=== PATIENT | male | born 1955 | race Caucasian/White ===

== ENCOUNTER → 2018-02-26 | Emergency (ER) | payer OTHER ==
[~2018-02-26] VITALS: Ht 185.4 cm; Wt 83.0 kg
--- NOTE | 2018-02-26 13:14 | PHYS DOC ---
Adult General Chief Complaint Chief Complaint: WEAKNESS/GENERALIZED HPI HPI 62-year-old male presents with concern for stroke. The patient woke up at 6:30 feeling normal. Around 7 AM the patient felt like he was drooling out of the left side of his mouth and had a possible facial droop. At 8 AM, his noticed that his speech might be somewhat slurred. Between the time the patient woke up at the time he and his came to the emergency room they went on a bike ride of several miles. The patient continues to have some slight slurring of his speech and a left sided lower lid droop, so they came to the ED. The patient feels normal. He is able to walk without difficulty. All his extremities are moving. He continues to have a slight droop in the left lower lip and his speech is slightly slurred. He has no other focal deficits. Review of Systems Review of Systems Constitutional: Denies fever or chills [] Eyes: Denies change in visual acuity, redness, or eye pain [] HENT: Denies nasal congestion or sore throat [] Respiratory: Denies cough or shortness of breath [] Cardiovascular: No additional information not addressed in HPI [] GI: Denies abdominal pain, nausea, vomiting, bloody stools or diarrhea [] : Denies dysuria or hematuria [] Musculoskeletal: Denies back pain or joint pain [] Integument: Denies rash or skin lesions [] Neurologic: Left-sided facial droop, slurred speech[] Endocrine: Denies polyuria or polydipsia [] All other systems were reviewed and found to be within normal limits, except as documented in this note. Physical Exam Physical Exam Constitutional: Well developed, well nourished, no acute distress, non-toxic appearance. [] HENT: Normocephalic, atraumatic, bilateral external ears normal, oropharynx moist, no oral exudates, nose normal. [] Eyes: PERRLA, EOMI, conjunctiva normal, no discharge. [] Neck: Normal range of motion, no tenderness, supple, no stridor. [] Cardiovascular:Heart rate regular rhythm, no murmur [] Lungs & Thorax: Bilateral breath sounds clear to auscultation [] Abdomen: Bowel sounds normal, soft, no tenderness, no masses, no pulsatile masses. [] Skin: Warm, dry, no erythema, no rash. [] Back: No tenderness, no CVA tenderness. [] Extremities: No tenderness, no cyanosis, no clubbing, ROM intact, no edema. [] Neurologic: Alert and oriented X 3, normal motor function, normal sensory function, left-sided facial droop, slurred speech.[] Psychologic: Affect normal, judgement normal, mood normal. [] EKG EKG Sinus bradycardia, rate 44, normal axis, no ST elevation or depression.[] Radiology/Procedures Radiology/Procedures CT HEAD INDICATION: Left FACIAL DROOP, SLURRED SPEECH SINCE 630 am THIS MORNING. COMPARISON: None Available. TECHNIQUE: 5 mm contiguous axial images were obtained from the skull base to the vertex Exposure: One or more of the following individualized dose reduction techniques were utilized for this examination: 1. Automated exposure control 2. Adjustment of the mA and/or kV according to patient size 3. Use of iterative reconstruction technique FINDINGS: There is a 2.2 cm hyperdensity identified in the right frontal white matter just lateral to the right basal ganglia. There is no evidence of midline shift. The munoz-white matter concision is maintained. The visualized lateral ventricles, third ventricle, fourth ventricle appropriate for age. The basal cisterns are uneffaced The visualized paranasal sinuses, mastoid air cells are clear. IMPRESSION: 1. 2.2 cm hyperdensity identified in the right frontal white matter just lateral to the right basal ganglia likely acute intraparenchymal bleed. Dr. Infante in ER was informed at 1:25 PM same day exam. Electronically signed by: Navdeep Hoover MD (02/26/2018 1:26 PM) [facility][] Course & Med Decision Making Course & Med Decision Making Pertinent Labs and Imaging studies reviewed. (See chart for details) The patient was sent for head CT immediately. It did show a roughly 2.5 cm intraparenchymal bleed on the right side. The patient stated a preference for being transferred to . We contacted for transfer and I spoke with Dr. Jag Costa's office. He accepted the patient for transfer. The patient's symptoms did not advance during his stay in the ED. He had no other deficits except for the facial droop and slurred speech. 30 minutes of critical care time was spent on this patient including evaluation , management, workup interpretation and coordination of care. [] Dragon Disclaimer Dragon Disclaimer This electronic medical record was generated, in whole or in part, using a voice recognition dictation system. RADHA INFANTE DO February 26, 2018 13:14
--- NOTE | 2018-02-26 13:29 | RAD ---
CT HEAD INDICATION: Left FACIAL DROOP, SLURRED SPEECH SINCE 630 am THIS MORNING. COMPARISON: None Available. TECHNIQUE: 5 mm contiguous axial images were obtained from the skull base to the vertex Exposure: One or more of the following individualized dose reduction techniques were utilized for this examination: 1. Automated exposure control 2. Adjustment of the mA and/or kV according to patient size 3. Use of iterative reconstruction technique FINDINGS: There is a 2.2 cm hyperdensity identified in the right frontal white matter just lateral to the right basal ganglia. There is no evidence of midline shift. The munoz-white matter concision is maintained. The visualized lateral ventricles, third ventricle, fourth ventricle appropriate for age. The basal cisterns are uneffaced The visualized paranasal sinuses, mastoid air cells are clear. IMPRESSION: 1. 2.2 cm hyperdensity identified in the right frontal white matter just lateral to the right basal ganglia likely acute intraparenchymal bleed. Dr. Goodrich in ER was informed at 1:25 PM same day exam. Electronically signed by: Navdeep Hooevr MD (02/26/2018 1:26 PM) [facility]
[2018-02-26 13:48] VITALS: BP 152/94
[2018-02-26 13:52] LABS: BASO % 1 % (0-3); EOS % 1 % (0-3); HEMATOCRIT 42.4 % (39.0-53.0); HEMOGLOBIN 14.5 g/dL (13.0-17.5); LYMPH # 0.9 x10^3/uL (1.0-4.8); LYMPH % 24 % (24-48); MEAN CORPUSCULAR HEMOGLOBIN 31 pg (25-35); MEAN CORPUSCULAR HGB CONC 34 g/dL (31-37); MEAN CORPUSCULAR VOLUME 90 fL (79-100); MONO # 0.3 x10^3/uL (0.0-1.1); MONO % 7 % (0-9); NEUT # 2.4 x10^3uL (1.8-7.7); NEUT % 66 % (31-73); PLATELET COUNT 190 x10^3/uL (140-400); RED CELL DISTRIBUTION WIDTH 13.1 % (11.5-14.5); WHITE BLOOD COUNT 3.6 x10^3/uL (4.0-11.0)
[2018-02-26 14:02] LABS: ALBUMIN 3.6 g/dL (3.4-5.0); ALBUMIN/GLOBULIN RATIO 1.2 (1.0-1.7); CREATININE 1.1 mg/dL (0.7-1.3); GFR 68.3; POTASSIUM 4.2 mmol/L (3.5-5.1); TOTAL PROTEIN 6.7 g/dL (6.4-8.2)
--- NOTE | 2018-02-26 14:46 | EKG ---
[address] [address] Test Date: 2018-02-26 Test Time: 13:14:55 Pat Name: HALIE HEARN Department: Room: Gender: M [employer]: : [id number] Requested By: RADHA INFANTE Order Number: [id number] Reading MD: Measurements Intervals [place] Rate: 44 P: 47 [place]: 184 QRS: -19 QRSD: 94 T: 27 QT: 430 QTc: 371 Interpretive Statements SINUS BRADYCARDIA LEFTWARD AXIS CONSIDER LEFT VENTRICULAR HYPERTROPHY POSSIBLY ABNORMAL ECG RI6.01 No previous ECG available for comparison
== END ==
LOC: ER 12:51
DX: I61.8 Other nontraumatic intracerebral hemorrhage (principal); R47.81 Slurred speech; R29.810 Facial weakness
CPT/HCPCS: 36415; 70450; 80053; 84484; 85025; 85610; 85730; 93005; 99291-25

== ENCOUNTER 2019-09-23 11:11 | Emergency (ER) | payer OTHER ==
[~2019-09-23] VITALS: Ht 185.4 cm; Wt 83.0 kg
[2019-09-23 11:34] VITALS: BP 136/104
--- NOTE | 2019-09-23 11:47 | PHYS DOC ---
Adult General Chief Complaint Chief Complaint Back pain HPI HPI Very pleasant 63 years old male presented to the emergency department with back pain symptoms started 48 hours ago patient had laminectomy , was doing fine until 48 hours ago started experiencing pain in the seated position only pain resolved when he stand and ambulate No numbness or weakness in the lower extremities patient has full control of her bladder in the stool Review of Systems Review of Systems Constitutional: Denies fever or chills [] Eyes: Denies change in visual acuity, redness, or eye pain [] HENT: Denies nasal congestion or sore throat [] Respiratory: Denies cough or shortness of breath [] Cardiovascular: No additional information not addressed in HPI [] GI: Denies abdominal pain, nausea, vomiting, bloody stools or diarrhea [] : Denies dysuria or hematuria [] Musculoskeletal: joint pain [] Integument: Denies rash or skin lesions [] Neurologic: Denies headache, focal weakness or sensory changes [] Endocrine: Denies polyuria or polydipsia [] All other systems were reviewed and found to be within normal limits, except as documented in this note. Allergies Allergies Allergies Coded Allergies Type Severity Reaction Last Updated Verified ampicillin Allergy Intermediate 02/26/18 Yes Physical Exam Physical Exam Constitutional: Well developed, well nourished, no acute distress, non-toxic appearance. [] HENT: Normocephalic, atraumatic, bilateral external ears normal, oropharynx moist, no oral exudates, nose normal. [] Eyes: PERRLA, EOMI, conjunctiva normal, no discharge. [] Neck: Normal range of motion, no tenderness, supple, no stridor. [] Cardiovascular:Heart rate regular rhythm, no murmur [] Lungs & Thorax: Bilateral breath sounds clear to auscultation [] Abdomen: Bowel sounds normal, soft, no tenderness, no masses, no pulsatile mass es. [] Skin: Warm, dry, no erythema, no rash. [] Back: No tenderness, no CVA tenderness. [] Extremities: No tenderness, no cyanosis, no clubbing, ROM intact, no edema. [] Neurologic: Alert and oriented X 3, normal motor function, normal sensory function, no focal deficits noted. [] Psychologic: Affect normal, judgement normal, mood normal. [] EKG EKG [] Radiology/Procedures Radiology/Procedures [] Course & Med Decision Making Course & Med Decision Making Pertinent Labs and Imaging studies reviewed. (See chart for details) [] Final Impression Final Impression [] Problems: (1) Chronic back pain Qualifiers: Qualified Codes: M54.5 - Low back pain; G89.29 - Other chronic pain Dragon Disclaimer Dragon Disclaimer This electronic medical record was generated, in whole or in part, using a voice recognition dictation system. RANJEET MONCADA MD Sep 23, 2019 11:47
--- NOTE | 2019-09-23 12:10 | RAD ---
LUMBAR SPINE 2-3V 09/23/2019 11:42 AM Indication: Back pain COMPARISON: None available TECHNIQUE: 3 views of the lumbosacral spine are provided. Findings: Grade 1 anterolisthesis of L4 on L5 is identified. Fracture bilateral pedicle screws are identified at L4. Laminectomy changes are identified at L4-L5. Moderate disc height loss at L4-L5. Moderate to severe facet arthropathy lower lumbar spine. Mild anterior marginal osteophytosis. There is no significant height loss visualized. Visualized sacrum appears intact. Nonobstructive bowel gas pattern. Impression: Grade 1 anterolisthesis of L4 on L5 with fractured bilateral pedicle screws at L4. Findings are age indeterminate and correlate with onset of patient's symptoms is recommended. Electronically signed by: Shabnam Iraheta MD (09/23/2019 12:07 PM) [id number]
== END 2019-09-23 12:19 | disposition home or self-care (01) ==
LOC: ER 11:11
DX: G89.29 Other chronic pain (principal); M54.5 Low back pain; Z88.1 Allergy status to other antibiotic agents
CPT/HCPCS: 72100; 99284